=== PATIENT | male | born 1995 | race Caucasian/White ===

== ENCOUNTER 2021-02-10 15:59 | Emergency (ER) | payer SELFPAY ==
[~2021-02-10] VITALS: Ht 165.1 cm; Wt 81.6 kg
[~2021-02-10 15:59] MED LIST: MOTRIN400 MG PO
[2021-02-10 18:24] LABS: BILIRUBIN Negative (Negative); BLOOD Negative (Negative); CLARITY Cloudy (Clear); COLOR Yellow (Yellow); GLUCOSE Negative (Negative); KETONE Negative (Negative); LEUKO ESTERASE Negative (Negative); NITRITE Negative (Negative); SPECIFIC GRAVITY 1.015 (1.001-1.030)
[2021-02-10 18:28] LABS: PH 8.5 (4.5-8.0)
[2021-02-10 18:38] LABS: RBC 0-2 rbc/hpf (0-2); WBC 0-2 wbc/hpf (0-5)
[2021-02-10] MEDS ORDERED: VIBRAMYCIN100 MG PO (19:32)
== END 2021-02-10 21:05 | disposition home or self-care (01) ==
LOC: ED 15:59
PROVIDERS: Emergency Medicine
DX: N45.1 Epididymitis (principal); Z91.040 Latex allergy status